=== PATIENT | male | born 1955 | race Caucasian/White ===

== ENCOUNTER 2019-03-21 13:38 | Inpatient (IN) | payer MEDICARE, MEDICAID ==
[~2019-03-21] VITALS: Ht 172.7 cm; Wt 90.7 kg
[~2019-03-21 13:38] MED LIST: ASPI-1169 PO; ATEN25TA PO; ATOR40TA PO; DIVA500T2 PO; DOCU100C36 PO; OMEP40CA13 PO
--- NOTE | 2019-03-21 14:00 | NUR ---
UZMA FROM [facility] C/O DEPRESSION, SI "I WANT TO JUMP OFF THE BUILDING". PT AAOX3, VSS. RR EVEN & UNLABORED. DENIES CP, SOB, DIZZINESS, N/V, WEAKNESS @ THIS TIME. PT SEEN & EVAL'D BY DR. MEDINA. WILL CONT TO MONITOR. SALLY @ BS.
[2019-03-21 14:14] LABS: BASOPHILS % (AUTO) 0.4 % (0.0-2.0); EOSINOPHILS % (AUTO) 3.1 % (0.0-6.0); HEMATOCRIT 44 % (39-51); HEMOGLOBIN 14.8 g/dL (13.5-17.5); LYMPHOCYTES # (AUTO) 1.4 /CMM (0.8-4.8); MEAN CORPUSCULAR HGB CONC 34 g/dl (31.0-36.0); MEAN CORPUSCULAR VOLUME 106 fL (80-96); MONOCYTES # (AUTO) 0.9 /CMM (0.1-1.30); MONOCYTES % (AUTO) 15.2 % (2.0-12.0); NEUTROPHILS # (AUTO) 3.6 /CMM (1.8-8.9); NEUTROPHILS % (AUTO) 58.3 % (43.0-81.0); PLATELET COUNT (AUTO) 142 /CMM (150-450); RED BLOOD CELL COUNT(AUTO) 4.16 MIL/uL (4.5-6.0); WHITE BLOOD COUNT (AUTO) 6.1 K/uL (4.3-11.0)
[2019-03-21 14:18] LABS: CARBON DIOXIDE 29 mmol/L (21-32); CHLORIDE 106 mmol/L (98-107); CREATININE 0.9 mg/dL (0.6-1.3); GLUCOSE 72 mg/dL (74-106); POTASSIUM 3.9 mmol/L (3.5-5.1); SODIUM SERUM 143 mmol/L (136-145); UREA NITROGEN, BLOOD 14 mg/dL (7-18)
[2019-03-21 14:24] LABS: ACETAMINOPHEN 0 ug/ml (10-30); ALANINE AMINOTRANSFERASE 22 U/L (12-78); ALBUMIN 3.7 g/dL (3.4-5.0); ALCOHOL, BLOOD < 3 mg/dL (0-0); ALKALINE PHOSPHATASE 59 U/L (46-116); ASPARTATE AMINOTRANSFERASE 19 U/L (15-37); BILIRUBIN,DIRECT 0.1 mg/dL (0.0-0.2); BILIRUBIN,TOTAL 0.4 mg/dL (0.2-1.0); SALICYLATE 1.7 mg/dL (2.8-20.0); TOTAL PROTEIN, SERUM 6.6 g/dL (6.4-8.2)
[2019-03-21] MEDS ORDERED: ASPI-1152 PO (14:29)
[2019-03-21] MEDS ORDERED: RISP0.253 PO (14:29)
[2019-03-21] MEDS ORDERED: HYDR59LO5 TP (14:29)
[2019-03-21] MEDS ORDERED: LOSA100T31 PO (14:29)
[2019-03-21] MEDS ORDERED: BUPR150T10 PO (14:29)
[2019-03-21] MEDS ORDERED: SENN-168 PO (14:29)
[2019-03-21] MEDS ORDERED: HYDR-4384 PO (14:29)
[2019-03-21] MEDS ORDERED: ZOLP5TAB8 PO (14:29)
[2019-03-21] MEDS ORDERED: FAMO40TA7 PO (14:29)
[2019-03-21] MEDS ORDERED: LORA0.5T PO ×2 (14:29)
[2019-03-21] MEDS ORDERED: NAPR-1009 PO (14:29)
[2019-03-21] MEDS ORDERED: GABA-532 PO (14:29)
[2019-03-21 15:29] LABS: APPEARANCE,URINE Clear (CLEAR); BILIRUBIN,URINE Negative (NEGATIVE); BLOOD, URINE Trace-intact Ery/uL (NEGATIVE); COLOR,URINE Yellow (YELLOW); KETONES,URINE Negative (NEGATIVE); LEUKOCYTE ESTERASE ,URINE Negative (NEGATIVE); NITRITE, URINE Negative (NEGATIVE); PROTEIN,URINE Negative (NEGATIVE); UGLUCOSE Negative (NEGATIVE); UROBILINOGEN,URINE 0.2 EU/dL (0.2)
[2019-03-21 15:31] LABS: BACTERIA,URINE None seen /HPF (None Seen); RBC,URINE 0-2 /HPF (0-2); SQUAMOUS EPITHELIAL CELL,UR Few /HPF (None Seen); WBC,URINE 0-2 /HPF (0-3)
--- NOTE | 2019-03-21 16:00 | NUR ---
Patient is resting comfortably in bed with eyes closed. Easily aroused. VSS
--- NOTE | 2019-03-21 16:11 | NUR ---
SW and mechanics handyman/office machine repair shop supervisor Porsha Araujo met with the pt. bedside. Pt. is alert and oriented x 4. Pt. has a sad affect. Pt. is cooperative and pleasant with SW during the assessment. Pt. resides at [facility] and is feeling depressed. Pt. informed SW, " I don't enjoy life anymore." Pt. states he has had a lot of health issues lately. Pt's emergency contact is his nephew/Guardian Michael Damico . Pt. has a psychiatric diagnosis of Schizoaffective Disorder and Depression. Pt. takes Wellbutrin, Depakote and Risperdal. Pt. denies any alcohol and drug use. Pt. smokes cigarettes occasionally. Pt. was attending [facility] day program, however stopped going due to his health and lacking the motivation to go. Pt. is seeking voluntary hospitalization at this time. Weight Recorder Porsha Araujo approved voluntary hospitalization for the pt. to [facility]. No other social service needs are requested at this time.
--- NOTE | 2019-03-21 16:14 | NUR ---
PT IS VOLUNTARY PSYCH PER CLINICIAN MALORIE CAPUTO
--- NOTE | 2019-03-21 16:44 | NUR ---
REPORT GIVEN TO MONA VARGAS FOR STEPHANIE.
[2019-03-21] MEDS ORDERED: ZOLPIDEM TARTRATE 5 MG TABLET PO PRN (18:00)
[2019-03-21] MEDS ORDERED: LORAZEPAM 0.5 MG TABLET PO PRN (18:00)
[2019-03-21] MEDS ORDERED: BLOOD SUGAR DIAGNOSTIC 1 EACH STRIP IN ONE (18:00)
--- NOTE | 2019-03-21 18:23 | NUR ---
RN NOTE- ADMISSION. 63 Y/O MALE PT BROUGHT IN FROM [facility] FOR SUICIDAL IDEATION. PT STATES, "i WANT TO JUMP THROUGH A GLASS WINDOW." PT CURRENTLY ON VOLUNTARY STATUS. FULL CODE, CARDIAC DIET. V/S ON ADMISSION TO UNIT- 106/65, HR-56, RR-20, AFEBRILE AT 98.0 AND 97% ON ROOM AIR. SKIN CHECK DONE BY THIS RN IN ROOM. SKIN INTACT. CONSENTS AND ADMISSION PAPERWORK SIGNED AND FACIAL PHOTO TAKEN AND PLACED IN CHART. VALUABLES AND POSSESSIONS INVENTORIED AND STORED APPROPRIATELY PER GPS PROTOCOL. VALUABLES SENT TO [employer]. DR PALAFOX NOTIFIED OF ADMISSION AND ORDERS GIVEN AND FOLLOWED. PT CALM, ALERT, ORIENTED AND COOPERATIVE. AMBULATORY W BRP. NO ACUTE DISTRESS. CURRENTLY DENYING SI HI AH VH. WHEN THIS RN ASKED PT HOW HE CAME TO BE HERE, HE STATED, "I DON'T HAVE MUCH GOING ON. I DON'T REALLY FEEL LIKE LIFE IS WORTH LIVING SOMETIMES." WILL MONITOR FOR SAFETY PER GS PROTOCOL, AND PROVIDE CLM THERAPEUTIC ENVIRONMENT. Addendum: 03/21/19 at 1915 by SAM MCMANUS RN DR GARCIA OFFICE CLOSED. NOTIFY IN AM
[2019-03-21 20:00] VITALS: BP 100/62
[2019-03-21 20:08] VITALS: BP 100/62
[2019-03-21] MEDS ORDERED: HYDROCORTISONE 2.5% LOTION 59 ML BOTTLE TP PRN (20:30)
[2019-03-21] MEDS ORDERED: HYDROCODONE/APAP 5/325MG 1 EACH TABLET PO PRN (20:30)
--- NOTE | 2019-03-21 21:04 | NUR ---
GPS-RN CALLED DR. FARZAD GARCIA REGARDING HOME MEDS TO BE RECONCILED. DR. GARCIA STATED TO CONTINUE PREVIOUS ORDERS.
[2019-03-21] MEDS: ATORVASTATIN 40 MG TABLET PO SCH (21:12)
[2019-03-21] MEDS: FAMOTIDINE (20 MG) 20 MG TABLET PO SCH (21:12)
[2019-03-21] MEDS: DOCUSATE SODIUM 100 MG CAPSULE PO SCH (21:12)
[2019-03-21] MEDS: ASPIRIN EC 81 MG TABLET.DR PO SCH (21:12)
--- NOTE | 2019-03-21 22:47 | NUR ---
GPS-RN SPOKE WITH DR. GARCIA GAVE ORDERS TO CONTINUE DEPAKOTE 500MG PO Q12HR FOR DIAGNOSIS OF SEIZURE DISORDER. PER PATIENT HE IS NOT TAKING GABAPENTIN AND MD ORDERED TO DISCONTINUE GABAPENTIN ORDERS NOTED AND CARRIED OUT. Addendum: 03/21/19 at 2302 by KIM JONES RN PER PATIENT HE'S NOT TAKING GABAPENTIN FOR A LONG TIME
[2019-03-21] MEDS: DIVALPROEX SODIUM 500 MG TABLET.DR PO SCH ×2 (23:00→23:03)
--- NOTE | 2019-03-21 23:05 | NUR ---
GPS-RN PATIENT REFUSED SCHEDULED DEPAKOTE MEDICATION. DESPITE OF EDUCATION PROVIDED. PATIENT SATED, "NO, I DON'T WANT IT". PATIENT CONTINUES TO REFUSE. WILL CONTINUE TO MONITOR.
[2019-03-22] MEDS ORDERED: INFLUENZA VACCINE 2019-20 0.5 ML DISP.SYRIN IM ONE (05:30)
--- NOTE | 2019-03-22 05:32 | NUR ---
GPS-RN FLU VACCINE WAS ORDERED GIVEN BY DR. GARCIA PER PT'S REQUEST. BUT IT WAS DISCONTINUED D/T USER ERROR TO CHANGE THE TIME SINCE MEDICATION IS NOT AVAILABLE. ADMINISTRATION TIME IS 0900 INSTEAD OF 0530 IN THE MORNING. WHEN I WAS ABOUT TO MAKE ANOTHER ORDER UNABLE DUE TO DUPLICATE ORDER. WILL INFORM THE PHARMACY TO RE-ENTER THE NEW ORDER FOR FLU VACCINE 0.5ML IM ONCE. CALLED OUTSIDE PHARMACY UNABLE TO GIVE ADVISE AT THIS TIME. WILL ENDORSE TO THE DAY SHIFT NURSE.
--- NOTE | 2019-03-22 06:27 | NUR ---
SPOKE WITH MELI AND HE SAID HE WILL TAKE CARE OF IT. Addendum: 03/22/19 at 0628 by KIM JONES RN REGARDING FLU VACCINE ORDER.
[2019-03-22 07:11] LABS: CHOLESTEROL 118 mg/dL (<200); HDL CHOLESTEROL 40 mg/dL (40-60); LDL 62 mg/dL (0-99); TRIGLYCERIDES 65 mg/dL (30-150)
[2019-03-22] MEDS: PANTOPRAZOLE 40 MG TABLET.DR PO SCH (07:42)
[2019-03-22 08:00] VITALS: BP 128/68
[2019-03-22] MEDS: NICOTINE PATCH (21MG) 21 MG PATCH.TD24 TD SCH (08:09)
[2019-03-22] MEDS: LOSARTAN POTASSIUM 50 MG TABLET PO SCH (08:10)
[2019-03-22] MEDS: SENNOSIDES 8.6 MG TABLET PO SCH (08:10)
[2019-03-22] MEDS: DOCUSATE SODIUM 100 MG CAPSULE PO SCH ×2 (08:10→20:19)
[2019-03-22] MEDS: DIVALPROEX SODIUM 500 MG TABLET.DR PO SCH ×2 (08:10→20:19)
[2019-03-22] MEDS: ASPIRIN EC 81 MG TABLET.DR PO SCH (08:10)
[2019-03-22] MEDS ORDERED: GABAPENTIN 100 MG CAPSULE PO SCH ×2 (09:00→13:00)
[2019-03-22] MEDS: risperiDONE 1 MG TABLET PO SCH ×2 (12:53→18:11)
--- NOTE | 2019-03-22 14:45 | NUR ---
FAMILY CONTACT: MENDEL contacted pts nephew Michael [phone] who stated he will be able to transport pt back to his assisted living once stable for discharge.
--- NOTE | 2019-03-22 15:00 | NUR ---
FACILITY CONTACT: SW contacted [facility] Address: [address] [place] [address] and spoke with Kiran, senior linux administrator to inform her of pts current psych hospitalization. Kiran stated that pt is able to return once stable for discharge.
--- NOTE | 2019-03-22 15:50 | NUR ---
INITIAL DISCHARGE PLAN: Per pt he wishes to return to [facility] Address: [address], [place] [address] . MENDEL spoke with Kiran, lead database administrator who stated that pt is able to return once stable for discharge. MENDEL also contacted pts nephew Michael [phone] who stated that he would assist with transportation once pt is stable for discharge. MENDEL will help form a safe and proper discharge in collaboration with .
[2019-03-22 16:00] VITALS: BP 111/54
[2019-03-22] MEDS: ATORVASTATIN 40 MG TABLET PO SCH (20:19)
[2019-03-22] MEDS: CARISOPRODOL 350 MG TABLET PO PRN (20:20)
[2019-03-22] MEDS: FAMOTIDINE (20 MG) 20 MG TABLET PO SCH (20:20)
[2019-03-22] MEDS: TEMAZEPAM 7.5 MG CAPSULE PO PRN (20:20)
--- NOTE | 2019-03-22 20:21 | NUR ---
GPS/RN NOTE: PATIENT REQUESTED FOR PAIN MEDICATION, SOMA 350 MG TAB PO, C/O HEADACHE. PATIENT ALSO REQUESTED FOR HIS ROUTINE NIGHT MEDICATIONS, GETTING READY TO SLEEP AND NOT TO BOTHER HIM.
[2019-03-22 20:30] VITALS: BP 99/52
[2019-03-23 08:00] VITALS: BP 139/82
[2019-03-23] MEDS: PANTOPRAZOLE 40 MG TABLET.DR PO SCH (08:00)
[2019-03-23] MEDS: DOCUSATE SODIUM 100 MG CAPSULE PO SCH ×2 (08:00→20:19)
[2019-03-23] MEDS: ASPIRIN EC 81 MG TABLET.DR PO SCH (08:01)
[2019-03-23] MEDS: risperiDONE 1 MG TABLET PO SCH ×2 (08:01→16:26)
[2019-03-23] MEDS: NICOTINE PATCH (21MG) 21 MG PATCH.TD24 TD SCH (08:01)
[2019-03-23] MEDS: SENNOSIDES 8.6 MG TABLET PO SCH (08:01)
[2019-03-23] MEDS: DIVALPROEX SODIUM 500 MG TABLET.DR PO SCH ×2 (08:01→20:19)
[2019-03-23] MEDS: LOSARTAN POTASSIUM 50 MG TABLET PO SCH (08:06)
[2019-03-23] MEDS: BUPROPION XL 150 MG TAB.ER.24 PO SCH (08:31)
[2019-03-23] MEDS: CARISOPRODOL 350 MG TABLET PO PRN (15:21)
--- NOTE | 2019-03-23 15:22 | NUR ---
RN NOTE: MED WITH SOMA PRN FOR 8/10 ANTERIOR BILATERAL NECK PAIN.
[2019-03-23 16:00] VITALS: BP 94/65
--- NOTE | 2019-03-23 20:06 | NUR ---
GPS/RN NOTE: RECEIVED PATIENT SLEEPING IN BED COMFORTABLY. A & O X3. NO APPARENT DISTRESS NOTED AT THIS TIME. ENVIRONMENTAL SAFETY CHECK DONE. FALL MEASURES MAINTAINED. BED ALARM ON. BED IN LOWEST AND LOCKED POSITION. WILL CONTINUE TO MONITOR Q15 MINUTES FOR SAFETY AND BEHAVIOR.
[2019-03-23 20:13] VITALS: BP 112/64
[2019-03-23] MEDS: ATORVASTATIN 40 MG TABLET PO SCH (21:04)
[2019-03-23] MEDS: FAMOTIDINE (20 MG) 20 MG TABLET PO SCH (21:04)
[2019-03-23] MEDS: TEMAZEPAM 7.5 MG CAPSULE PO PRN (21:44)
--- NOTE | 2019-03-23 21:45 | NUR ---
GPS RN NOTE: PATIENT REQUESTED TO GET SLEEPING PILL, TEMAZEPAM PRN 7.5 MG 1 CAP PO GIVEN.
--- NOTE | 2019-03-24 06:47 | NUR ---
GPS/RN NOTE: PATIENT QUIET, SLEPT LONG HOURS DURING THE NIGHT. NO AGITATION NOTED, STILL DEPRESSED. STABLE CONDITION, TOOK HIS ROUTINE MEDICATIONS LAST NIGHT.
--- NOTE | 2019-03-24 07:30 | NUR ---
INITIAL PT RESTING IN BED. PT CURRENTLY ON VOLUNTARY STATUS. FULL CODE. PT CALM, ALERT, ORIENTED AND COOPERATIVE. AMBULATORY W BRP. NO ACUTE DISTRESS. CURRENTLY DENYING SI HI AH VH. WILL MONITOR FOR SAFETY PER GS PROTOCOL, AND PROVIDE CLM THERAPEUTIC ENVIRONMENT. BED IN LOW POSITION RAILS UP X2 WILL CONTINUE TO MONITOR
[2019-03-24 08:00] VITALS: BP 110/65
[2019-03-24] MEDS: ASPIRIN EC 81 MG TABLET.DR PO SCH (08:28)
[2019-03-24] MEDS: NICOTINE PATCH (21MG) 21 MG PATCH.TD24 TD SCH (08:28)
[2019-03-24] MEDS: PANTOPRAZOLE 40 MG TABLET.DR PO SCH (08:28)
[2019-03-24] MEDS: LOSARTAN POTASSIUM 50 MG TABLET PO SCH (08:29)
[2019-03-24] MEDS: SENNOSIDES 8.6 MG TABLET PO SCH (08:29)
[2019-03-24] MEDS: BUPROPION XL 150 MG TAB.ER.24 PO SCH (08:29)
[2019-03-24] MEDS: DIVALPROEX SODIUM 500 MG TABLET.DR PO SCH ×2 (08:29→21:26)
[2019-03-24] MEDS: DOCUSATE SODIUM 100 MG CAPSULE PO SCH ×2 (08:29→21:27)
[2019-03-24] MEDS: risperiDONE 1 MG TABLET PO SCH ×2 (10:38→16:39)
[2019-03-24 16:00] VITALS: BP 100/65
--- NOTE | 2019-03-24 17:12 | NUR ---
CLOSING PT KEPT SAFE ALL SHIFT COMPLIANT WITH MEDICATIONS VISITED TELEVISION ROOM THIS SHIFT PT COOPERATIVE AND ALL MEDICATIONS GIVEN. WILL GIVEN RN REPORT TO PM SHIFT FOR CONTINUITY OF CARE
[2019-03-24 17:40] VITALS: BP 100/65
[2019-03-24] MEDS: CARISOPRODOL 350 MG TABLET PO PRN (18:04)
--- NOTE | 2019-03-24 19:36 | NUR ---
GPS/RN NOTE; RESTING QUIETLY IN BED, NO APPARENT DISTRESS NOTED. BREATHING PATTERN NON-LABORED, COMFORTABLE.
[2019-03-24 20:30] VITALS: BP 98/51
[2019-03-24] MEDS: FAMOTIDINE (20 MG) 20 MG TABLET PO SCH (21:26)
[2019-03-24] MEDS: ATORVASTATIN 40 MG TABLET PO SCH (21:26)
[2019-03-24] MEDS: TEMAZEPAM 7.5 MG CAPSULE PO PRN (21:33)
--- NOTE | 2019-03-24 21:34 | NUR ---
GPS/RN NOTE: REQUESTED FOPR SLEEPING PILL, RESTORIL 7.5 MG CAP PO GIVEN.
--- NOTE | 2019-03-25 06:30 | NUR ---
GPS/RN NOTE: PATIENT SLEPT FOR 9 HOURS LAST NIGHT, NO ACUTE DISTRESS NOTED. WILL CONTINUE TO MONITOR FOR SAFETY.
[2019-03-25 08:00] VITALS: BP 94/68
[2019-03-25] MEDS: NICOTINE PATCH (21MG) 21 MG PATCH.TD24 TD SCH (08:00)
[2019-03-25] MEDS: risperiDONE 1 MG TABLET PO SCH ×2 (08:00→16:24)
[2019-03-25] MEDS: CARISOPRODOL 350 MG TABLET PO PRN (08:00)
[2019-03-25] MEDS: ASPIRIN EC 81 MG TABLET.DR PO SCH (08:00)
[2019-03-25] MEDS: BUPROPION XL 150 MG TAB.ER.24 PO SCH (08:00)
[2019-03-25] MEDS: DOCUSATE SODIUM 100 MG CAPSULE PO SCH ×2 (08:00→20:51)
--- NOTE | 2019-03-25 08:00 | NUR ---
RN NOTE: PT C/O 11/22 RIGHT FOOT PAIN. MEDICATED WITH SOMA PRN.
[2019-03-25] MEDS: DIVALPROEX SODIUM 500 MG TABLET.DR PO SCH ×2 (08:02→20:52)
[2019-03-25] MEDS: LOSARTAN POTASSIUM 50 MG TABLET PO SCH (08:02)
[2019-03-25] MEDS: SENNOSIDES 8.6 MG TABLET PO SCH (08:02)
[2019-03-25] MEDS: PANTOPRAZOLE 40 MG TABLET.DR PO SCH (08:02)
[2019-03-25 16:00] VITALS: BP 102/64
[2019-03-25] MEDS: TEMAZEPAM 7.5 MG CAPSULE PO PRN (21:49)
[2019-03-25] MEDS: ATORVASTATIN 40 MG TABLET PO SCH (21:51)
--- NOTE | 2019-03-26 07:23 | NUR ---
NORCO 5MG/325MG GIVEN PER PT REQUEST FOR GENERALIZED BODY PAIN AT 0723. WILL CONTINUE TO MONITOR. ENDORSED TO AM SHIFT
[2019-03-26 08:00] VITALS: BP 114/63
[2019-03-26] MEDS: SENNOSIDES 8.6 MG TABLET PO SCH (08:21)
[2019-03-26] MEDS: BUPROPION XL 150 MG TAB.ER.24 PO SCH (08:21)
[2019-03-26] MEDS: NICOTINE PATCH (21MG) 21 MG PATCH.TD24 TD SCH (08:21)
[2019-03-26] MEDS: DOCUSATE SODIUM 100 MG CAPSULE PO SCH ×2 (08:22→20:51)
[2019-03-26] MEDS: PANTOPRAZOLE 40 MG TABLET.DR PO SCH (08:22)
[2019-03-26] MEDS: LOSARTAN POTASSIUM 50 MG TABLET PO SCH (08:22)
[2019-03-26] MEDS: ASPIRIN EC 81 MG TABLET.DR PO SCH (08:22)
[2019-03-26] MEDS: DIVALPROEX SODIUM 500 MG TABLET.DR PO SCH ×2 (08:22→20:51)
[2019-03-26] MEDS: risperiDONE 1 MG TABLET PO SCH ×2 (08:22→16:16)
--- NOTE | 2019-03-26 14:41 | NUR ---
INDIVIDUAL MEETING: SW spoke with pt regarding his current concerns; pt requested he be assigned a patient rights advocate, SW explained that pts are only assigned patient rights advocates if they are on involuntary holds. SW explained that since he is on voluntary admission pt can leave AMA at any time. Pt then asked if he can receive physical therapy once he is discharged, SW explained that he can request physical therapy at his assisted living facility if he meets criteria, SW explained that currently in the hospital he is not receiving physical therapy as he has a steady gait and is able to ambulate without difficulty. Pt understood and stated that he will continue working with the psychiatrist and discharge when MD orders D/C.
[2019-03-26 16:00] VITALS: BP 107/56
[2019-03-26 20:53] VITALS: BP 92/49
[2019-03-26] MEDS: TEMAZEPAM 7.5 MG CAPSULE PO PRN (21:59)
[2019-03-26] MEDS: ATORVASTATIN 40 MG TABLET PO SCH (22:01)
[2019-03-27 08:00] VITALS: BP 110/65
[2019-03-27] MEDS: DIVALPROEX SODIUM 500 MG TABLET.DR PO SCH ×2 (08:41→20:40)
[2019-03-27] MEDS: LOSARTAN POTASSIUM 50 MG TABLET PO SCH (08:41)
[2019-03-27] MEDS: ASPIRIN EC 81 MG TABLET.DR PO SCH (08:42)
[2019-03-27] MEDS: BUPROPION XL 150 MG TAB.ER.24 PO SCH (08:42)
[2019-03-27] MEDS: SENNOSIDES 8.6 MG TABLET PO SCH (08:43)
[2019-03-27] MEDS: NICOTINE PATCH (21MG) 21 MG PATCH.TD24 TD SCH (08:43)
[2019-03-27] MEDS: PANTOPRAZOLE 40 MG TABLET.DR PO SCH (09:22)
[2019-03-27] MEDS: DOCUSATE SODIUM 100 MG CAPSULE PO SCH ×2 (09:22→20:40)
[2019-03-27] MEDS: risperiDONE 1 MG TABLET PO SCH ×2 (09:22→16:47)
--- NOTE | 2019-03-27 10:08 | NUR ---
FAMILY CONTACT: MENDEL contacted pts nephew Michael [phone] and informed him pt will be discharged on 03/29/19, nephew stated that he will pick pt up at 1230 and transport to [facility].
--- NOTE | 2019-03-27 10:12 | NUR ---
FACILITY CONTACT: MENDEL contacted [facility] Address: [address] [place] [address] and spoke with Kiran, assisted living administrator to inform her pt will be discharged on 03/29/19. Kiran agreed with discharge plan.
[2019-03-27 16:00] VITALS: BP 103/67
[2019-03-27 20:03] VITALS: BP 101/60
[2019-03-27] MEDS: CARISOPRODOL 350 MG TABLET PO PRN (20:40)
[2019-03-27] MEDS: ATORVASTATIN 40 MG TABLET PO SCH (21:20)
[2019-03-27] MEDS: TEMAZEPAM 7.5 MG CAPSULE PO PRN (22:13)
[2019-03-28 08:00] VITALS: BP 104/62
[2019-03-28] MEDS: DIVALPROEX SODIUM 500 MG TABLET.DR PO SCH ×2 (08:42→20:36)
[2019-03-28] MEDS: risperiDONE 1 MG TABLET PO SCH ×2 (08:42→16:53)
[2019-03-28] MEDS: DOCUSATE SODIUM 100 MG CAPSULE PO SCH ×2 (08:42→20:36)
[2019-03-28] MEDS: NAPROXEN 500 MG TABLET PO PRN ×2 (08:43→20:36)
[2019-03-28] MEDS: ASPIRIN EC 81 MG TABLET.DR PO SCH (08:43)
[2019-03-28] MEDS: SENNOSIDES 8.6 MG TABLET PO SCH (08:44)
[2019-03-28] MEDS: BUPROPION XL 150 MG TAB.ER.24 PO SCH (08:44)
[2019-03-28] MEDS: PANTOPRAZOLE 40 MG TABLET.DR PO SCH (08:44)
[2019-03-28] MEDS: NICOTINE PATCH (21MG) 21 MG PATCH.TD24 TD SCH (08:45)
[2019-03-28] MEDS: LOSARTAN POTASSIUM 50 MG TABLET PO SCH (08:49)
--- NOTE | 2019-03-28 10:09 | NUR ---
RN NOTE: PT NOTED TO DISPLAY SEXUALLY INAPPROPRIATE BEHAVIOR IN GROUP ROOM. EXPOSING PRIVATE PARTS TO PATIENTS AND STAFF. PT REDIRECTED TO ROOM AND REORIENTED TO PROPER BEHAVIOR. WILL CONT TO MONITOR PT'S BEHAVIOR.
--- NOTE | 2019-03-28 15:53 | NUR ---
DISCHARGE NOTE: Pt will be discharged tomorrow 03/29/19 at 12:30pm. Pt will be discharged via private vehicle to [facility] Address: [address] [place] [address] . Pts nephew Michael [phone] will be picking pt up and transporting to the facility. Pts mood is euthymic with congruent affect. Pt denied visual/auditory hallucinations and denied suicidal/homicidal ideation. Pt was given a referral to [facility] [address] [facility] [address] and was encouraged to follow up and go in on Tuesday03/30/19 at 9:00am for an intake. Pt will follow up with [employer] Cable[employer]: Dr. Giovanny Rodriguez Address: [address] [place] [address] 5 at the facility. For smoking cessation, patient will be referred to the [employer] or [employer] [id number]. Patient will also be referred to the Nicotine Anonymous meeting on March at 7:00pm at [address] [place] [address], [address] [facility] [address]. The multidisciplinary exit care form was done, printed, signed, and given to the patient.
[2019-03-28 16:00] VITALS: BP 100/69
[2019-03-28 20:22] VITALS: BP 119/57
[2019-03-28 20:24] VITALS: BP 119/57
[2019-03-28] MEDS: TEMAZEPAM 7.5 MG CAPSULE PO PRN (21:39)
[2019-03-28] MEDS: ATORVASTATIN 40 MG TABLET PO SCH (21:39)
--- NOTE | 2019-03-29 00:04 | NUR ---
RESET MERCHANDISER NOTES SEEN PT IN BED SLEEPING COMFORTABLY , BREATHING EVEN AND UNLABORED, KEPT HIM WARM AND COMFORTABLE AT ALL TIMES. WILL CONTINUE MONITORING Q 15 MINUTES FOR SAFETY.
--- NOTE | 2019-03-29 06:58 | NUR ---
airfield engineer officer notes pt woke up and did his own morning care routine. slept well and stable shawna the night. calmed and compliance with his medication. all due meds given and all needs met. kept him warm and comfortable at all times. Endorse to am nurse for continuity of care.
--- NOTE | 2019-03-29 07:37 | NUR ---
rn initial notes received pt awake and alert lying in bed. denies pain. compliant, behavior stable at this time. safety ensured. pt is conversnat and aware with poc. will monitor
[2019-03-29 08:00] VITALS: BP 116/56
[2019-03-29] MEDS: DOCUSATE SODIUM 100 MG CAPSULE PO SCH (08:39)
[2019-03-29] MEDS: ASPIRIN EC 81 MG TABLET.DR PO SCH (08:39)
[2019-03-29] MEDS: CARISOPRODOL 350 MG TABLET PO PRN (08:39)
[2019-03-29] MEDS: BUPROPION XL 150 MG TAB.ER.24 PO SCH (08:40)
[2019-03-29] MEDS: PANTOPRAZOLE 40 MG TABLET.DR PO SCH (08:40)
[2019-03-29 08:42] VITALS: BP 116/56
[2019-03-29] MEDS: LOSARTAN POTASSIUM 50 MG TABLET PO SCH (08:42)
[2019-03-29] MEDS: NICOTINE PATCH (21MG) 21 MG PATCH.TD24 TD SCH (08:42)
[2019-03-29] MEDS: SENNOSIDES 8.6 MG TABLET PO SCH (08:43)
[2019-03-29] MEDS: risperiDONE 1 MG TABLET PO SCH (09:22)
[2019-03-29] MEDS: DIVALPROEX SODIUM 500 MG TABLET.DR PO SCH (09:22)
--- NOTE | 2019-03-29 12:30 | NUR ---
GPS/RN PT DISCHARGED TO [facility] VIA PRIVATE CAR WITH HIS BROTHER. PRESCRIPTIONS AND EXIT CARE TEACHINGS PROVIDED. ID BAND REMOVED. NO SI OR HI AT THE TIME OF DISCHARGE. PROPERTY RETURNED.
== END 2019-03-29 12:30 | DRG 885 ==
LOC: ER 13:43 → GPS 16:00
PROVIDERS: ADMIT Psychiatry & Neurology Psychiatry; ATTEND Internal Medicine
DX: F25.1 Schizoaffective disorder, depressive type (principal); R45.851 Suicidal ideations; F29 Unspecified psychosis not due to a substance or known physiological condition; F41.9 Anxiety disorder, unspecified; K21.9 Gastro-esophageal reflux disease without esophagitis; G40.909 Epilepsy, unspecified, not intractable, without status epilepticus; I10 Essential (primary) hypertension; Z79.899 Other long term (current) drug therapy; Z79.82 Long term (current) use of aspirin; D69.6 Thrombocytopenia, unspecified; J44.9 Chronic obstructive pulmonary disease, unspecified; F17.200 Nicotine dependence, unspecified, uncomplicated; E78.5 Hyperlipidemia, unspecified; K59.00 Constipation, unspecified; Z81.8 Family history of other mental and behavioral disorders; Z80.0 Family history of malignant neoplasm of digestive organs; E66.3 Overweight; Z68.30 Body mass index [BMI] 30.0-30.9, adult
CPT/HCPCS: 36415; 71045-TC; 80048-TC; 80061-TC; 80076-TC; 80164-TC; 80305; 81000-TC; 82962-TC; 85025-TC; 87081-TC; 93880-TC; G0480; Q2036